=== PATIENT | male | born 1985 | race Caucasian/White ===

== ENCOUNTER 2017-09-15 12:03 | Emergency (ER) | payer SELFPAY ==
[~2017-09-15] VITALS: Wt 73.7 kg
--- NOTE | 2017-09-15 12:24 | ERD ---
ER Documentation Chief Complaint Chief Complaint LEFT ARM INJURY BY CHAIN SAW, PT DIAPHORETIC, PALE, DIZZY ROS All systems reviewed and are negative except as per history of present illness. Physical Exam Vitals Vital Signs Date Time Temp Pulse Resp B/P Pulse Ox O2 Delivery O2 Flow Rate FiO2 09/15/17 12:12 97.0 71 18 119/70 98 Physical Exam Const: [] Head: Atraumatic Eyes: Normal Conjunctiva ENT: Normal External Ears, Nose and Mouth. Neck: Full range of motion..~ No meningismus. Resp: Clear to auscultation bilaterally Cardio: Regular rate and rhythm, no murmurs Abd: Soft, non tender, non distended. Normal bowel sounds Skin: No petechiae or rashes Back: No midline or flank tenderness Ext: No cyanosis, or edema Neur: Awake and alert Psych: Normal Mood and Affect CHRISTOPHER SAN MD Sep 15, 2017 12:24
[2017-09-15] MEDS ORDERED: SOD CHLORIDE 0.9% 1,000 ML IV STA (12:27)
[2017-09-15] MEDS ORDERED: DIPHTH/TET/ACEL PERTUSS (ADULT) 0.5 ML VIAL IM* ONE (12:30)
[2017-09-15] MEDS ORDERED: morphine 2 MG INJ IV ONE (12:30)
[2017-09-15] MEDS ORDERED: LIDOCAINE 1%/EPI 30 ML INJ INJ STA (12:50)
[2017-09-15 12:56] LABS: BASOPHILS % 0.4 % (0.0-2.0); EOSINOPHILS # 0.1 10^3/ul (0.0-0.5); HEMATOCRIT 36.7 % (42.0-52.0); HEMOGLOBIN 13.2 g/dl (14.0-18.0); LYMPHOCYTES # 0.9 10^3/ul (0.8-2.9); LYMPHOCYTES % 11.5 % (15.0-51.0); MEAN CORPUSCULAR HEMOGLOBIN 30.9 pg (29.0-33.0); MEAN CORPUSCULAR VOLUME 85.9 fl (82.0-101.0); MEAN PLATELET VOLUME 10.9 fl (7.4-10.4); MONOCYTE # 0.5 10^3/ul (0.3-0.9); MONOCYTES % 6.2 % (0.0-11.0); NEUTROPHIL # 6.1 10^3/ul (1.6-7.5); NEUTROPHILS % 80.4 % (39.0-77.0); PLATELET COUNT 168 10^3/UL (140-415); RED BLOOD COUNT 4.27 10^6/ul (4.70-6.10); RED CELL DISTRIBUTION WIDTH 13.1 % (11.5-14.5); WHITE BLOOD COUNT 7.6 10^3/ul (4.8-10.8)
--- NOTE | 2017-09-15 13:00 | RADRPT ---
PROCEDURE: XR Forearm. CLINICAL INDICATION: Laceration, forearm pain TECHNIQUE: 3 views of the left forearm were obtained. COMPARISON: No prior studies are available for comparison. FINDINGS: There is no acute fracture. There is a skin and soft tissue defect along the radial aspect of the mi d/proximal forearm. There is no radiopaque foreign body identified. Joint spaces are preserved. IMPRESSION: 1. No radiographic evidence of acute osseous abnormality noting the skin and soft tissue defect arnulfo g the radial aspect of the mid/proximal forearm. RPTAT: [facility]U .César Maxwell MD, MD Date Time Electronically viewed and signed by .César Maxwell MD, on 09/15/2017 13:00 .K/
[2017-09-15 13:20] LABS: CALCIUM 8.6 mg/dl (8.4-10.2); CREATININE 0.97 mg/dl (0.61-1.24); POTASSIUM 4.3 mmol/L (3.5-5.1)
--- NOTE | 2017-09-15 13:27 | ERD ---
ER Documentation Chief Complaint Chief Complaint LEFT ARM INJURY BY CHAIN SAW, PT DIAPHORETIC, PALE, DIZZY HPI 32-year-old male presenting with a left forearm injury with a chain saw while cutting wood. He states that when the chainsaw slipped while he was cutting a tree branch, it hit his arm and he had immediately stopped it. Per his friend, there was significant blood loss on-site but he is unable to quantify. When the patient arrived, he was noted to be somewhat shaky and pale in triage. Currently he does not look that way. He is complaining of left forearm pain, 9 out of 10, nonradiating. No associated paresthesias or focal weakness. Tetanus vaccine is not up-to-date. ROS All systems reviewed and are negative except as per history of present illness. Medications Home Meds Active Scripts Hydrocodone/Acetaminophen ([place] 5-325 Tablet) 1 Each Tablet, 1 TAB PO Q6H Y for SEVERE PAIN LEVEL 7-10, #7 TAB Prov:JUSTIN BARILLAS MD 09/15/17 Ibuprofen* (Motrin*) 600 Mg Tab, 600 MG PO Q6H Y for PAIN AND OR ELEVATED TEMP, #30 TAB Prov:JUSTIN BARILLAS MD 09/15/17 Cephalexin* (Keflex*) 500 Mg Capsule, 500 MG PO BID for 7 Days, CAP Prov:JUSTIN BARILLAS MD 09/15/17 Allergies Allergies: Coded Allergies: No Known Allergy (Unverified , 09/15/17) PMhx/Soc Medical and Surgical Hx: pt denies Medical Hx, pt denies Surgical Hx Hx Alcohol Use: Yes Hx Substance Use: No Hx Tobacco Use: No Smoking Status: Unknown if ever smoked FmHx Family History: No diabetes Physical Exam Vitals Vital Signs Date Time Temp Pulse Resp B/P Pulse Ox O2 Delivery O2 Flow Rate FiO2 09/15/17 12:12 97.0 71 18 119/70 98 Physical Exam Const: mild distress secondary to pain, no diaphoresis, nontoxic Head: Atraumatic Eyes: Normal Conjunctiva ENT: Normal External Ears, Nose and Mouth. Neck: Full range of motion..~ No meningismus. Resp: Clear to auscultation bilaterally Cardio: Regular rate and rhythm, no murmurs. 2+ radial pulses bilaterally. Abd: Soft, non tender, non distended. Normal bowel sounds Skin: No petechiae or rashes Back: No midline or flank tenderness Ext: 10 cm laceration along the radial aspect of the mid/proximal forearm.involving partial muscle, no arterial bleeding. Wrist flexion, extension , ulnar and radial deviation intact. No evidence of tendon injury. Neur: Awake and alert, oriented x 3, no facial asymmetry. strength intact in all distributions of all 4 extremities. sensations intact distally. Psych: Normal Mood and Affect Result Diagram: 09/15/17 1230 09/15/17 1230 Results 24 hrs Laboratory Tests Test 09/15/17 12:30 White Blood Count 7.610^3/ul Red Blood Count 4.2710^6/ul Hemoglobin 13.2g/dl Hematocrit 36.7% Mean Corpuscular Volume 85.9fl Mean Corpuscular Hemoglobin 30.9pg Mean Corpuscular Hemoglobin Concent 36.0g/dl Red Cell Distribution Width 13.1% Platelet Count 02479^3/UL Mean Platelet Volume 10.9fl Neutrophils % 80.4% Lymphocytes % 11.5% Monocytes % 6.2% Eosinophils % 1.0% Basophils % 0.4% Nucleated Red Blood Cells % 0.0/100WBC Neutrophils # 6.110^3/ul Lymphocytes # 0.910^3/ul Monocytes # 0.510^3/ul Eosinophils # 0.110^3/ul Basophils # 0.010^3/ul Nucleated Red Blood Cells # 0.010^3/ul Sodium Level 141mmol/L Potassium Level 4.3mmol/L Chloride Level 107mmol/L Carbon Dioxide Level 25mmol/L Anion Gap 13 Blood Urea Nitrogen 14mg/dl Creatinine 0.97mg/dl Glucose Level 97mg/dl Calcium Level 8.6mg/dl Current Medications Medications (Trade) Dose Ordered Sig/Vangie Route PRN Reason Start Time Stop Time Status Last Admin Dose Admin Sodium Chloride (NS) 1,000 ml @ 1,000 mls/hr Q1H STAT IV 09/15/17 12:27 09/15/17 13:26 DC 09/15/17 12:46 Morphine Sulfate (morphine) 4 mg ONCE ONCE IV 09/15/17 12:30 09/15/17 12:31 DC 09/15/17 12:45 Diphtheria/ Tetanus/Acell Pertussis (Adacel) 0.5 ml ONCE ONCE IM* 09/15/17 12:30 09/15/17 12:31 DC 09/15/17 12:46 Lidocaine/ Epinephrine (Xylocaine 1%/ Epi (Pf)) 30 ml ONCE STAT INJ 09/15/17 12:50 09/15/17 12:51 DC Procedures/MDM EMERGENT LABS AND DIAGNOSTIC STUDIES: Lab Results above were reviewed and interpreted by me. CBC: no anemia or evidence of infection BMP: No evidence of electrolyte abnormality, renal failure, hypoglycemia Radiology Results as interpreted by Radiology below were reviewed by Tressa Barillas MD: XR left forearm: No acute bony injury Initial Nursing notes reviewed. Previous Medical Records requested via the Electronic Health Record. EMERGENCY DEPARTMENT COURSE / MEDICAL DECISION MAKING: Laceration Repair by me: Anesthesia: 1% lidocaine with epinephrine locally Location: Left forearm Tendon/Joint/Nerves: No injury Foreign body: None detected after copious irrigation and exploration Technique: Subcutaneous sutures placed to close the fascia over muscle layer and to reduce wound tension. horizontal mattress sutures, simple Interrupted Sutures x 5 Complexity: Complex laceration repair. There was need for edge excision due to Jagged skin edges. Placement of subcutaneous sutures/mucosal repair/edge excision Post Closure Length: 10 cm Patient's bleeding was easily controlled in the department and there is no indication of anemia. No evidence of compartment syndrome, neurologic injury, vascular injury, open joint, tendon laceration, or foreign body. Patient is appropriate for outpatient follow up. 48 hour wound check. Scar minimization instructions given. Wound care was discussed. His tetanus vaccine was updated. Suture removal in 10-14 days. Return precautions were discussed Departure Diagnosis: Primary Impression: Laceration of left forearm without foreign body Encounter type: initial encounter Qualified Code: S51.812A - Laceration of left forearm without foreign body, initial encounter Condition: Stable EKJUSTIN HUMPHREY MD Sep 15, 2017 13:27
[2017-09-15] MEDS ORDERED: IBUP-1542 PO (14:39)
[2017-09-15] MEDS ORDERED: CEPH-443 PO (14:39)
[2017-09-15] MEDS ORDERED: HYDR-906 PO (14:39)
== END 2017-09-15 14:58 | disposition home or self-care (01) ==
LOC: E/R 12:03
DX: S51.812A Laceration without foreign body of left forearm, initial encounter (principal); W27.0XXA Contact with workbench tool, initial encounter; Y92.9 Unspecified place or not applicable; Z23 Encounter for immunization
CPT/HCPCS: 12004; 73090; 80048; 85025; 86850; 86900; 86901; 90471; 90715; 96374; 99284; J2270; J7030